=== PATIENT | female | born 1985 | race African-American/Black ===

== ENCOUNTER 2016-03-30 11:50 | Emergency (ER) | payer OTHER ==
[~2016-03-30] VITALS: Ht 175.3 cm; Wt 107.5 kg
[2016-03-30] MEDS ORDERED: NAPROSYN500 MG PO (12:23)
[2016-03-30] MEDS ORDERED: NORFLEX100 MG PO (12:23)
[2016-03-30 12:30] VITALS: BP 133/78
== END 2016-03-30 12:40 | disposition home or self-care (01) ==
LOC: ER 11:50
DX: G44.209 Tension-type headache, unspecified, not intractable (principal); S16.1XXA Strain of muscle, fascia and tendon at neck level, initial encounter; V49.9XXA Car occupant (driver) (passenger) injured in unspecified traffic accident, initial encounter; Y93.89 Activity, other specified; Y92.89 Other specified places as the place of occurrence of the external cause; Y99.8 Other external cause status; Z98.84 Bariatric surgery status; F10.99 Alcohol use, unspecified with unspecified alcohol-induced disorder

== ENCOUNTER 2018-03-17 01:50 | Emergency (ER) | payer OTHER ==
[~2018-03-17] VITALS: Ht 175.3 cm; Wt 102.1 kg
[~2018-03-17 01:50] MED LIST: NAPROSYN500 MG PO; NORFLEX100 MG PO
[2018-03-17 03:00] VITALS: BP 141/96
== END 2018-03-17 03:05 | disposition left against medical advice (07) ==
LOC: ER 01:50
DX: F41.9 Anxiety disorder, unspecified (principal); F43.9 Reaction to severe stress, unspecified